=== PATIENT | female | born 1940 | race Hispanic/Latino ===

== ENCOUNTER 2021-09-28 18:02 | Inpatient (IN) | payer OTHER ==
[~2021-09-28] VITALS: Ht 157.5 cm; Wt 54.0 kg
[~2021-09-28 18:02] MED LIST: ASPI-556 PO; CEPH500C2 PO; CHOL500050 PO; FOLI1TAB85 PO; LISI20TA24 PO; METF-444 PO; PRAV40TA3 PO
[2021-09-28 18:28] LABS: BASOPHILS % (AUTO) 0.4 % (0.0-5.0); EOSINOPHILS % (AUTO) 1.2 % (0.0-8.0); HEMATOCRIT 30.7 % (36-48); LYMPHOCYTES % (AUTO) 15.7 % (21.0-51.0); MEAN CORPUSCULAR HEMOGLOBIN 27.4 pg (27.0-33.0); MEAN CORPUSCULAR HGB CONC 33.2 g/dL (32.0-36.0); MEAN CORPUSCULAR VOLUME 82.5 fL (79-99); MONOCYTES % (AUTO) 6.6 % (3.0-13.0); NEUTROPHILS % (AUTO) 75.5 % (40.0-77.0); PLATELET COUNT (AUTO) 166 K/uL (130-400); RED BLOOD CELL COUNT(AUTO) 3.72 MIL/uL (4.00-5.50); RED CELL DISTRIBUTION WIDTH 13.6 % (11.0-15.5); WHITE BLOOD COUNT (AUTO) 7.2 K/uL (4.8-10.8)
[2021-09-28] MEDS ORDERED: CEFEPIME HCL 2 GM VIAL IVP SCH (18:30)
[2021-09-28 18:54] LABS: CREATININE 1.7 mg/dL (0.5-1.5)
[2021-09-28 18:59] LABS: ALBUMIN 3.5 g/dL (3.5-5.0); BILIRUBIN,TOTAL 0.1 mg/dL (0.2-1.0); TOTAL PROTEIN, SERUM 8.3 g/dL (6.0-8.3)
[2021-09-28] MEDS ORDERED: 0.9%NACL 1000ML 1,503 ML IV ONE (19:30)
[2021-09-28] MEDS ORDERED: VANCOMYCIN PROTOCOL PER PHARMACY IV PRN (19:30)
[2021-09-28] MEDS ORDERED: ONDANSETRON 4MG INJ IV PRN (19:30)
[2021-09-28] MEDS ORDERED: MORPHINE 2 MG SYG IV PRN (19:30)
[2021-09-28] MEDS ORDERED: MORPHINE 4 MG SYG IV PRN (19:30)
[2021-09-28] MEDS ORDERED: 0.9%NACL 1000ML 1,000 ML IV ONE (19:30)
[2021-09-28] MEDS ORDERED: VANCOMYCIN 1G/250ML KIT 250 ML IV SCH (20:00)
[2021-09-28] MEDS ORDERED: HEPARIN 5,000 UNIT VIAL SQ SCH (21:00)
[2021-09-28] MEDS: INSULIN HUMULIN R 100 UNIT/ML 3ML SQ SCH (21:00)
[2021-09-28 23:40] LABS: APPEARANCE,URINE Clear (CLEAR); BILIRUBIN,URINE Negative (NEGATIVE); COLOR,URINE Yellow (YELLOW); GLUCOSE, URINE (UA) Negative (NEGATIVE); KETONES,URINE Negative (NEGATIVE); LEUKOCYTE ESTERASE ,URINE Negative (NEGATIVE); NITRATE,URINE Negative (NEGATIVE); OCCULT BLOOD,URINE Negative (NEGATIVE); PH,URINE 6.5 (5.0-8.0); PROTEIN,URINE POS 1+ mg/dL (NEGATIVE); UROBILINOGEN,URINE 0.2 mg/dL (0.2-1.0)
[2021-09-29 00:12] VITALS: BP 157/64
[2021-09-29 04:08] VITALS: BP 129/64
[2021-09-29 04:49] LABS: BASOPHILS % (AUTO) 0.5 % (0.0-5.0); EOSINOPHILS % (AUTO) 0.7 % (0.0-8.0); HEMATOCRIT 26.8 % (36-48); LYMPHOCYTES % (AUTO) 19.2 % (21.0-51.0); MEAN CORPUSCULAR HGB CONC 33.6 g/dL (32.0-36.0); MEAN CORPUSCULAR VOLUME 83.2 fL (79-99); MONOCYTES % (AUTO) 7.5 % (3.0-13.0); NEUTROPHILS % (AUTO) 71.6 % (40.0-77.0); PLATELET COUNT (AUTO) 158 K/uL (130-400); RED BLOOD CELL COUNT(AUTO) 3.22 MIL/uL (4.00-5.50); RED CELL DISTRIBUTION WIDTH 13.7 % (11.0-15.5); WHITE BLOOD COUNT (AUTO) 5.8 K/uL (4.8-10.8)
[2021-09-29 05:04] LABS: HEMOGLOBIN A1C 7.7 % (4.0-6.0)
[2021-09-29 05:13] LABS: CREATININE 1.3 mg/dL (0.5-1.5); MAGNESIUM 1.9 mg/dL (1.80-2.40); PHOSPHORUS 2.9 mg/dL (2.5-4.9)
[2021-09-29] MEDS: INSULIN HUMULIN R 100 UNIT/ML 3ML SQ SCH ×4 (06:02→20:17)
[2021-09-29 08:00] VITALS: BP 129/62
[2021-09-29] MEDS: FAMOTIDINE 20MG VIAL IV SCH (09:00)
[2021-09-29] MEDS: HEPARIN 5,000 UNIT VIAL SQ SCH ×2 (09:37→20:16)
[2021-09-29] MEDS ORDERED: 0.9%NACL 1000ML 1,000 ML IV SCH (10:00)
[2021-09-29 12:00] VITALS: BP 145/69
[2021-09-29] MEDS ORDERED: TRAMADOL HCL 50 MG TABLET PO PRN ×2 (12:00)
[2021-09-29] MEDS: NIFEDIPINE ER 30 MG TAB PO SCH (12:37)
[2021-09-29] MEDS: CLINDAMYCIN IVPB 600MG/50ML 50 ML IV SCH ×2 (12:37→20:15)
[2021-09-29] MEDS: CEFAZOLIN SODIUM 1 GM VIAL IVP SCH (13:52)
[2021-09-29 16:00] VITALS: BP 143/83
[2021-09-29] MEDS: ACETAMINOPHEN 325 MG TAB PO PRN (16:38)
[2021-09-29] MEDS ORDERED: CEFEPIME HCL 1 GM VIAL IVP SCH (18:00)
[2021-09-29 20:00] VITALS: BP 144/59
[2021-09-30] VITALS: BP 100/50
[2021-09-30] MEDS: CEFAZOLIN SODIUM 1 GM VIAL IVP SCH ×2 (01:37→12:26)
[2021-09-30] MEDS: CLINDAMYCIN IVPB 600MG/50ML 50 ML IV SCH ×3 (03:28→20:55)
[2021-09-30] MEDS: ACETAMINOPHEN 325 MG TAB PO PRN ×2 (03:36→20:56)
[2021-09-30 04:00] VITALS: BP 115/58
[2021-09-30 05:23] LABS: BASOPHILS % (AUTO) 0.6 % (0.0-5.0); EOSINOPHILS % (AUTO) 2.8 % (0.0-8.0); HEMATOCRIT 27.1 % (36-48); LYMPHOCYTES % (AUTO) 26.5 % (21.0-51.0); MEAN CORPUSCULAR HEMOGLOBIN 27.3 pg (27.0-33.0); MEAN CORPUSCULAR HGB CONC 32.8 g/dL (32.0-36.0); MEAN CORPUSCULAR VOLUME 83.1 fL (79-99); MONOCYTES % (AUTO) 8.9 % (3.0-13.0); NEUTROPHILS % (AUTO) 60.3 % (40.0-77.0); PLATELET COUNT (AUTO) 168 K/uL (130-400); RED BLOOD CELL COUNT(AUTO) 3.26 MIL/uL (4.00-5.50); RED CELL DISTRIBUTION WIDTH 13.2 % (11.0-15.5); WHITE BLOOD COUNT (AUTO) 5.3 K/uL (4.8-10.8)
[2021-09-30] MEDS: INSULIN HUMULIN R 100 UNIT/ML 3ML SQ SCH ×4 (05:45→21:15)
[2021-09-30 06:06] LABS: % IRON SATURATION 24.2 % (22-44)
[2021-09-30 06:13] LABS: CARBON DIOXIDE 22 mmol/L (21-32); CHLORIDE 104 mmol/L (101-111); CHOLESTEROL 160 mg/dL (<200); CREATININE 1.3 mg/dL (0.5-1.5); GLOMERULAR FILTR. RATE CALC 42 mL/min (>60); GLUCOSE,RANDOM 163 mg/dL (70-105); HDL CHOLESTEROL 28 mg/dL (35-85); LDL DIRECT 108 mg/dL (0-99); POTASSIUM 4.1 mmol/L (3.5-5.1); SODIUM SERUM 137 mmol/L (136-145); THYROID STIMULATING HORMONE 4.47 uIU/mL (0.36-3.74); TRIGLYCERIDES 187 mg/dL (30-200); UREA NITROGEN, BLOOD 27 mg/dL (7-18)
[2021-09-30 06:28] LABS: ERYTHROCYTE SEDIMENTATION RATE 113 MM/HR (0-30)
[2021-09-30] MEDS: ASPIRIN 81 MG EC TAB PO SCH (07:50)
[2021-09-30] MEDS: NIFEDIPINE ER 30 MG TAB PO SCH ×2 (07:50→09:02)
[2021-09-30] MEDS: HEPARIN 5,000 UNIT VIAL SQ SCH ×2 (08:07→21:14)
[2021-09-30 08:13] VITALS: BP 126/51
[2021-09-30] MEDS: FAMOTIDINE 20MG VIAL IV SCH (09:00)
[2021-09-30 12:00] VITALS: BP 138/66
[2021-09-30 16:00] VITALS: BP 133/64
[2021-09-30 20:00] VITALS: BP 132/69
[2021-10-01] VITALS (7 sets, daily range): BP systolic 131–160; BP diastolic 55–73
[2021-10-01] MEDS: CEFAZOLIN SODIUM 1 GM VIAL IVP SCH ×2 (01:23→12:19)
[2021-10-01] MEDS: CLINDAMYCIN IVPB 600MG/50ML 50 ML IV SCH ×3 (03:20→19:33)
[2021-10-01 05:30] LABS: BASOPHILS % (AUTO) 0.9 % (0.0-5.0); EOSINOPHILS % (AUTO) 4.1 % (0.0-8.0); HEMATOCRIT 26.7 % (36-48); MEAN CORPUSCULAR HEMOGLOBIN 27.1 pg (27.0-33.0); MEAN CORPUSCULAR VOLUME 82.2 fL (79-99); MONOCYTES % (AUTO) 8.6 % (3.0-13.0); NEUTROPHILS % (AUTO) 44.2 % (40.0-77.0); PLATELET COUNT (AUTO) 195 K/uL (130-400); RED BLOOD CELL COUNT(AUTO) 3.25 MIL/uL (4.00-5.50); RED CELL DISTRIBUTION WIDTH 13.3 % (11.0-15.5); WHITE BLOOD COUNT (AUTO) 4.6 K/uL (4.8-10.8)
[2021-10-01 05:41] LABS: CREATININE 1.2 mg/dL (0.5-1.5)
[2021-10-01] MEDS: INSULIN HUMULIN R 100 UNIT/ML 3ML SQ SCH ×4 (06:36→19:57)
[2021-10-01] MEDS: ASPIRIN 81 MG EC TAB PO SCH (08:08)
[2021-10-01] MEDS: NIFEDIPINE ER 30 MG TAB PO SCH ×2 (08:08→08:19)
[2021-10-01] MEDS: HEPARIN 5,000 UNIT VIAL SQ SCH ×2 (08:14→19:33)
[2021-10-01] MEDS: FAMOTIDINE 20MG VIAL IV SCH (08:19)
[2021-10-01] MEDS ORDERED: IRON SUCROSE COMPLEX 400 MG in 0.9%NACL 50ML 50 ML IV SCH (08:30)
[2021-10-01] MEDS: EPOETIN ALFA-EPBX (NON-ESRD) 10,000 UNIT/ML VIAL SQ SCH (09:38)
[2021-10-01] MEDS ORDERED: LABETALOL 20MG VIAL IV PRN (14:30)
[2021-10-02] MEDS: CEFAZOLIN SODIUM 1 GM VIAL IVP SCH ×2 (00:32→11:40)
[2021-10-02 04:14] VITALS: BP 147/68
[2021-10-02] MEDS: CLINDAMYCIN IVPB 600MG/50ML 50 ML IV SCH ×2 (04:47→11:40)
[2021-10-02 05:26] LABS: BASOPHILS % (AUTO) 1.1 % (0.0-5.0); HEMATOCRIT 27.4 % (36-48); LYMPHOCYTES % (AUTO) 29.4 % (21.0-51.0); MEAN CORPUSCULAR HEMOGLOBIN 26.9 pg (27.0-33.0); MEAN CORPUSCULAR HGB CONC 32.8 g/dL (32.0-36.0); MONOCYTES % (AUTO) 9.1 % (3.0-13.0); NEUTROPHILS % (AUTO) 47.8 % (40.0-77.0); PLATELET COUNT (AUTO) 223 K/uL (130-400); RED BLOOD CELL COUNT(AUTO) 3.34 MIL/uL (4.00-5.50); RED CELL DISTRIBUTION WIDTH 13.2 % (11.0-15.5); WHITE BLOOD COUNT (AUTO) 5.4 K/uL (4.8-10.8)
[2021-10-02 05:37] LABS: CREATININE 1.2 mg/dL (0.5-1.5); POTASSIUM 4.1 mmol/L (3.5-5.1)
[2021-10-02] MEDS: INSULIN HUMULIN R 100 UNIT/ML 3ML SQ SCH ×2 (06:01→11:41)
[2021-10-02 08:00] VITALS: BP 150/69
[2021-10-02] MEDS: EPOETIN ALFA-EPBX (NON-ESRD) 10,000 UNIT/ML VIAL SQ SCH (08:29)
[2021-10-02] MEDS: ASPIRIN 81 MG EC TAB PO SCH (08:30)
[2021-10-02] MEDS: FAMOTIDINE 20MG VIAL IV SCH (08:31)
[2021-10-02] MEDS: HEPARIN 5,000 UNIT VIAL SQ SCH (08:35)
[2021-10-02] MEDS ORDERED: NIFEDIPINE ER 30 MG TAB PO SCH (09:00)
[2021-10-02 11:36] VITALS: BP 149/66
[2021-10-02] MEDS ORDERED: CLIN-141 PO (12:46)
[2021-10-02] MEDS ORDERED: CEFD300C3 PO (12:49)
== END 2021-10-02 14:30 | disposition home or self-care (01) | DRG 603 ==
LOC: EDH 18:02 → EDHIP 19:15 → 3BH 22:12
PROVIDERS: ADMIT Internal Medicine Critical Care Medicine; ATTEND Internal Medicine Critical Care Medicine
DX: L03.115 Cellulitis of right lower limb (principal); N17.9 Acute kidney failure, unspecified; D64.9 Anemia, unspecified; I12.9 Hypertensive chronic kidney disease with stage 1 through stage 4 chronic kidney disease, or unspecified chronic kidney disease; N18.9 Chronic kidney disease, unspecified; E11.65 Type 2 diabetes mellitus with hyperglycemia; E78.5 Hyperlipidemia, unspecified; E11.22 Type 2 diabetes mellitus with diabetic chronic kidney disease; B35.3 Tinea pedis; B35.1 Tinea unguium; Z98.49 Cataract extraction status, unspecified eye
CPT/HCPCS: 36415; 71045; 80048; 80053; 80061; 81003; 82607; 82728; 82746; 82948; 83036; 83540; 83550; 83605; 83735; 84100; 84145; 84443; 85025; 85045; 85651; 86140; 87040; 93971; G0378; J0690; J0692; J1644; J1756; J1815; J3370; J3490